=== PATIENT | male | born 1975 | race African-American/Black ===

== ENCOUNTER 2017-04-27 20:47 | Emergency (ER) | payer SELFPAY ==
[~2017-04-27] VITALS: Ht 175.3 cm; Wt 81.0 kg
[~2017-04-27 20:47] MED LIST: PENICILLN VK500 M1 PO; TYLENOL # 31 TA1 PO
[2017-04-27] MEDS ORDERED: AUGMENTIN875TAB PO (21:08)
[2017-04-27 21:12] VITALS: BP 114/64
== END 2017-04-27 21:19 | disposition home or self-care (01) | DRG 153 ==
LOC: ED 20:47
DX: J06.9 Acute upper respiratory infection, unspecified (principal); J45.909 Unspecified asthma, uncomplicated

== ENCOUNTER 2018-12-05 20:04 | Emergency (ER) | payer SELFPAY ==
[~2018-12-05] VITALS: Ht 175.3 cm; Wt 95.5 kg
[~2018-12-05 20:04] MED LIST changes: +AUGMENTIN875TAB PO
[2018-12-05] MEDS ORDERED: PROVENTIL0.083 % IN (20:18)
[2018-12-05] MEDS ORDERED: VENTOLIN HFA IN (20:19)
[2018-12-05 20:34] VITALS: BP 124/75
== END 2018-12-05 20:42 | DRG 897 ==
LOC: ED 20:04
DX: F15.10 Other stimulant abuse, uncomplicated (principal); F12.90 Cannabis use, unspecified, uncomplicated; R06.02 Shortness of breath; J45.909 Unspecified asthma, uncomplicated; Y35.93XA Legal intervention, means unspecified, suspect injured, initial encounter; Y93.02 Activity, running; Y92.414 Local residential or business street as the place of occurrence of the external cause

== ENCOUNTER 2019-12-21 | Emergency (ER) | payer SELFPAY ==
[~2019-12-21] MED LIST changes: +PROVENTIL0.083 % IN; +VENTOLIN HFA IN
[2019-12-21] MEDS ORDERED: BACTRIM DS1 TAB PO (11:00)
== END 2019-12-21 11:45 | disposition home or self-care (01) | DRG 603 ==
PROC: 0H9KXZZ Drainage of Right Lower Leg Skin, External Approach (ICD-10-PCS; principal; 2019-12-21)
DX: L02.415 Cutaneous abscess of right lower limb (principal); F17.290 Nicotine dependence, other tobacco product, uncomplicated

== ENCOUNTER 2019-12-23 | Emergency (ER) | payer SELFPAY ==
[~2019-12-23] MED LIST changes: +BACTRIM DS1 TAB PO
== END 2019-12-23 13:08 | disposition home or self-care (01) | DRG 951 ==
DX: Z48.01 Encounter for change or removal of surgical wound dressing (principal)

== ENCOUNTER 2022-04-01 15:11 | Emergency (ER) | payer SELFPAY ==
[2022-04-01 15:25] VITALS: BP 150/84
== END 2022-04-01 15:36 | disposition left against medical advice (07) | DRG 951 ==
LOC: ED 15:11 → LWOBS 15:34
DX: Z53.21 Procedure and treatment not carried out due to patient leaving prior to being seen by health care provider (principal)

== ENCOUNTER 2022-05-26 10:54 | Emergency (ER) | payer SELFPAY ==
[~2022-05-26] VITALS: Ht 175.3 cm; Wt 81.8 kg
[2022-05-26 11:02] VITALS: BP 157/87
[2022-05-26 11:30] VITALS: BP 127/78
[2022-05-26 12:00] VITALS: BP 123/75
[2022-05-26] MEDS ORDERED: CEPHALEXIN500 M1 PO (12:43)
[2022-05-26 13:53] VITALS: BP 123/75
[2022-05-27] MEDS ORDERED: CEPHALEXIN500 M1 PO (13:37)
== END 2022-05-26 14:00 | disposition home or self-care (01) | DRG 563 ==
LOC: ED 10:54
PROC: 2W3DX1Z Immobilization of Left Lower Arm using Splint (ICD-10-PCS; principal; 2022-05-26)
DX: S52.602A Unspecified fracture of lower end of left ulna, initial encounter for closed fracture (principal); S50.812A Abrasion of left forearm, initial encounter; W22.8XXA Striking against or struck by other objects, initial encounter; S91.331A Puncture wound without foreign body, right foot, initial encounter; W45.0XXA Nail entering through skin, initial encounter; J45.909 Unspecified asthma, uncomplicated